=== PATIENT | female | born 1995 | race Caucasian/White ===

== ENCOUNTER 2024-11-17 09:44 | Outpatient (CLI) | payer MEDICAID, SELFPAY ==
[2024-11-17 12:06] LABS: Free T4 Free Thyroxine 1.11 ng/dL (0.82-1.77); Thyroid Stimulating Hormone 5.77 uIU/mL (0.27-4.20)
== END 2024-11-17 09:45 | disposition home or self-care (01) ==
LOC: LAB 09:49
PROVIDERS: Family Provider Internal Medicine; Visit Provider Internal Medicine
DX: E06.3 Autoimmune thyroiditis (principal)
CPT/HCPCS: 36415; 84439; 84443

== ENCOUNTER 2025-01-21 10:02 | Outpatient (CLI) | payer MEDICAID, SELFPAY ==
[2025-01-21 11:28] LABS: Free T4 Free Thyroxine 1.38 ng/dL (0.82-1.77); Thyroid Stimulating Hormone 7.43 uIU/mL (0.27-4.20)
== END 2025-01-21 10:03 | disposition home or self-care (01) ==
LOC: LAB 10:06
PROVIDERS: Visit Provider Internal Medicine
DX: E06.3 Autoimmune thyroiditis (principal)
CPT/HCPCS: 36415; 84439; 84443